=== PATIENT | female | born 1965 | race African-American/Black ===

== ENCOUNTER 2024-03-05 17:44 | Emergency (ER) | payer MEDICAID ==
[~2024-03-05] VITALS: Ht 160 cm; Wt 73.5 kg
[2024-03-05 18:44] VITALS: TEMP 98.6
[2024-03-05] MEDS: OLANZAPINE 10 MG VIAL IM ONE (19:00)
[2024-03-05 19:25] LABS: BASOPHILS % (AUTO) 0.7 % (0.0-2.0); EOSINOPHILS # (AUTO) 0.3 K/uL (0.0-0.7); EOSINOPHILS % (AUTO) 4.8 % (0.0-6.0); HEMATOCRIT 34 % (33-45); HEMOGLOBIN 11.3 g/dL (11.5-14.8); LYMPHOCYTES # (AUTO) 1.8 K/uL (0.8-4.8); LYMPHOCYTES % (AUTO) 26.4 % (20.0-44.0); MEAN CORPUSCULAR HEMOGLOBIN 27 PG (26.0-33.0); MEAN CORPUSCULAR HGB CONC 33 g/dl (31.0-36.0); MEAN CORPUSCULAR VOLUME 83 fL (82-100); MONOCYTES # (AUTO) 0.7 K/uL (0.1-1.30); NEUTROPHILS % (AUTO) 58.1 % (43.0-81.0); PLATELET COUNT (AUTO) 336 K/uL (150-450); RED BLOOD CELL COUNT(AUTO) 4.14 MIL/uL (4.0-5.2); RED CELL DISTRIBUTION WIDTH 14.3 % (11.5-15.0); WHITE BLOOD COUNT (AUTO) 6.9 K/uL (4.3-11.0)
[2024-03-05 19:30] VITALS: BP 138/88; O2SAT 98
[2024-03-05] MEDS ORDERED: OLANZAPINE 10 MG VIAL IM ONE (19:33)
[2024-03-05 19:35] LABS: APPEARANCE,URINE CLEAR (CLEAR); BILIRUBIN,URINE NEGATIVE (NEGATIVE); BLOOD, URINE NEGATIVE Ery/uL (NEGATIVE); COLOR,URINE YELLOW (YELLOW); KETONES,URINE NEGATIVE (NEGATIVE); LEUKOCYTE ESTERASE ,URINE NEGATIVE (NEGATIVE); NITRITE, URINE NEGATIVE (NEGATIVE); PROTEIN,URINE NEGATIVE (NEGATIVE); UGLUCOSE NEGATIVE (NEGATIVE); UROBILINOGEN,URINE 0.2 EU/dL (0.2)
[2024-03-05 19:39] LABS: CALCIUM, SERUM 9.3 mg/dL (8.5-10.1); CREATININE 0.6 mg/dL (0.6-1.3); POTASSIUM 3.6 mmol/L (3.5-5.1)
[2024-03-05 19:41] LABS: AMPHETAMINE, URINE NEGATIVE (NEGATIVE); BARBITURATE, URINE NEGATIVE (NEGATIVE); BENZODIAZEPINE, URINE NEGATIVE (NEGATIVE); CANNABINOID, URINE NEGATIVE (NEGATIVE); OPIATE, URINE NEGATIVE (NEGATIVE); PHENCYCLIDINE SCREEN,URINE NEGATIVE (NEGATIVE)
[2024-03-05 19:45] LABS: COCCAINE, URINE POSITIVE (NEGATIVE)
[2024-03-05 19:45] LABS: ALBUMIN 3.4 g/dL (3.4-5.0); BILIRUBIN,DIRECT 0.1 mg/dL (0.0-0.2); BILIRUBIN,TOTAL 0.2 mg/dL (0.2-1.0); TOTAL PROTEIN, SERUM 8.3 g/dL (6.4-8.2)
[2024-03-05 19:46] LABS: SALICYLATE 0.9 mg/dL (2.8-20.0)
== END 2024-03-06 00:17 ==
LOC: ER 17:54
DX: R45.851 Suicidal ideations (principal); F17.200 Nicotine dependence, unspecified, uncomplicated; F20.9 Schizophrenia, unspecified; F31.9 Bipolar disorder, unspecified; G89.29 Other chronic pain; Z60.2 Problems related to living alone; Z20.822 Contact with and (suspected) exposure to COVID-19
CPT/HCPCS: 99285; 96372; 85025; 80048; 80076; 81003; 36415; 87426; 80143; 80320; 80307; J3490; G0480

== ENCOUNTER 2024-03-19 10:35 | Emergency (ER) | payer MEDICAID, OTHER ==
[~2024-03-19] VITALS: Ht 160 cm; Wt 72.6 kg
[2024-03-19 11:12] VITALS: TEMP 98.4
[2024-03-19 12:09] LABS: BASOPHILS # (AUTO) 0.1 K/uL (0.0-0.2); BASOPHILS % (AUTO) 0.8 % (0.0-2.0); EOSINOPHILS # (AUTO) 0.3 K/uL (0.0-0.7); HEMATOCRIT 43 % (33-45); HEMOGLOBIN 14.1 g/dL (11.5-14.8); LYMPHOCYTES # (AUTO) 1.7 K/uL (0.8-4.8); LYMPHOCYTES % (AUTO) 27.4 % (20.0-44.0); MEAN CORPUSCULAR HEMOGLOBIN 28 PG (26.0-33.0); MEAN CORPUSCULAR HGB CONC 33 g/dl (31.0-36.0); MEAN CORPUSCULAR VOLUME 85 fL (82-100); MONOCYTES # (AUTO) 0.4 K/uL (0.1-1.30); NEUTROPHILS # (AUTO) 3.6 K/uL (1.8-8.9); NEUTROPHILS % (AUTO) 59.8 % (43.0-81.0); PLATELET COUNT (AUTO) 320 K/uL (150-450); RED BLOOD CELL COUNT(AUTO) 5.03 MIL/uL (4.0-5.2); RED CELL DISTRIBUTION WIDTH 14.5 % (11.5-15.0); WHITE BLOOD COUNT (AUTO) 6.1 K/uL (4.3-11.0)
[2024-03-19] MEDS ORDERED: OLANZAPINE 5 MG TABLET ONE (12:12)
[2024-03-19] MEDS: OLANZAPINE 5 MG TABLET PO ONE (12:20)
[2024-03-19 12:32] LABS: APPEARANCE,URINE CLEAR (CLEAR); BILIRUBIN,URINE NEGATIVE (NEGATIVE); BLOOD, URINE NEGATIVE Ery/uL (NEGATIVE); COLOR,URINE YELLOW (YELLOW); KETONES,URINE NEGATIVE (NEGATIVE); LEUKOCYTE ESTERASE ,URINE NEGATIVE (NEGATIVE); NITRITE, URINE NEGATIVE (NEGATIVE); PH,URINE 7.5 (5.0-8.0); PROTEIN,URINE NEGATIVE (NEGATIVE); UGLUCOSE NEGATIVE (NEGATIVE); UROBILINOGEN,URINE 0.2 EU/dL (0.2)
[2024-03-19 12:34] LABS: PREGNANCY TEST URINE QUAL NEGATIVE (NEGATIVE)
[2024-03-19 12:39] LABS: ALANINE AMINOTRANSFERASE 23 U/L (12-78); ALBUMIN 3.8 g/dL (3.4-5.0); ALCOHOL, BLOOD 33 mg/dL (0-10); ALKALINE PHOSPHATASE 104 U/L (46-116); ASPARTATE AMINOTRANSFERASE 19 U/L (15-37); BILIRUBIN,DIRECT 0.1 mg/dL (0.0-0.2); BILIRUBIN,TOTAL 0.4 mg/dL (0.2-1.0); CALCIUM, SERUM 9.3 mg/dL (8.5-10.1); CARBON DIOXIDE 26 mmol/L (21-32); CHLORIDE 102 mmol/L (98-107); CREATININE 0.7 mg/dL (0.6-1.3); GLUCOSE 94 mg/dL (74-106); POTASSIUM 3.8 mmol/L (3.5-5.1); SODIUM SERUM 135 mmol/L (136-145); TOTAL PROTEIN, SERUM 9.2 g/dL (6.4-8.2); UREA NITROGEN, BLOOD 11 mg/dL (7-18)
[2024-03-19 12:46] LABS: ACETAMINOPHEN <10 ug/ml (10-30); SALICYLATE 0.8 mg/dL (2.8-20.0)
[2024-03-19 15:18] LABS: AMPHETAMINE, URINE NEGATIVE (NEGATIVE); BARBITURATE, URINE NEGATIVE (NEGATIVE); BENZODIAZEPINE, URINE NEGATIVE (NEGATIVE); CANNABINOID, URINE NEGATIVE (NEGATIVE); OPIATE, URINE NEGATIVE (NEGATIVE); PHENCYCLIDINE SCREEN,URINE NEGATIVE (NEGATIVE)
[2024-03-19 15:26] LABS: COCCAINE, URINE POSITIVE (NEGATIVE)
[2024-03-19 17:36] VITALS: BP 139/78; O2SAT 99
== END 2024-03-19 20:30 ==
LOC: ER 10:47
DX: R45.851 Suicidal ideations (principal); R44.0 Auditory hallucinations; F17.200 Nicotine dependence, unspecified, uncomplicated; Z60.2 Problems related to living alone; Z20.822 Contact with and (suspected) exposure to COVID-19
CPT/HCPCS: 36415; 80048-TC; 80076-TC; 84703-TC; 85025-TC; G0480